=== PATIENT | female | born 1940 | race African-American/Black ===

== ENCOUNTER 2017-01-25 17:14 | Emergency (ER) | payer MEDICARE, OTHER ==
[2017-01-25] MEDS ORDERED: MECLIZINE 25 MG TABLET PO ONE (17:42)
--- NOTE | 2017-01-25 17:46 | Emergency Department Record ---
History of Present Illness - General Chief Complaint: Hypertension Stated Complaint: DIZZY Time Seen by Provider: 01/25/17 17:24 Source: Patient, Old records reviewed Mode of Arrival: Ambulatory Limitations: No limitations - History of Present Illness Initial Comments: The patient is here due to feeling dizzy earlier with mild nausea. She describes the dizziness as feeling like the room was spinning mildly. The onset seemed to be with moving her head. She has had similar problems in the past also. The symptoms occurred earlier in the day so the patient did take her blood pressure and it was elevated so she decided to go to the . At the they found her BP elevated at 150/90 so they sent the patient to the ER. Presently the patient denies any pain, DINH, nausea, dizziness, blurred vision, or weakness. She basically feels back to normal. The patient has a long hx of HTN and did take all of her medicine today. MD Complaint: Dizziness Onset/Timin -: Days(s) Timing: Unsure History of Same: No History of Trauma: No Improves With: Nothing Worsens With: Nothing Associated Symptoms: Denies other symptoms - Related Data Home Medications Medication Instructions Recorded Confirmed Last Taken Amlodipine Besylate/Benazepril 1 each PO DAILY 01/25/17 01/25/17 Unknown [Amlodipine-Benazepril 10-20 mg] Previous Rx's Medication Instructions Recorded Meclizine HCl [Antivert] 25 mg PO BID #15 tab 01/25/17 Allergies Allergy/AdvReac Type Severity Reaction Status Date / Time Penicillins Allergy PT UNSURE Unverified 12/17/15 11:29 OF REACTION Travel Screening - Travel/Exposure Within Last 30 Days Have you traveled within the last 30 days?: No Review of Systems Constitutional: Denies: Chills, Fever Eyes: Denies: Eye discharge ENT: Denies: Congestion Respiratory: Denies: Cough, Dyspnea Past Medical History - SOCIAL HISTORY Smoking Status: Never smoker Alcohol Use: None Drug Use: None - RESPIRATORY Hx Respiratory Disorders: Yes Hx Asthma: Yes - CARDIOVASCULAR Hx Cardio Disorders: Yes Hx Hypertension: Yes - NEURO Hx Neuro Disorders: No - GI Hx GI Disorders: Yes Hx Diverticulitis: Yes - Hx Genitourinary Disorders: No - ENDOCRINE Hx Endocrine Disorders: No - MUSCULOSKELETAL Hx Musculoskeletal Disorders: No - PSYCH Hx Psych Problems: Yes Hx Anxiety: Yes Hx Depression: Yes - HEMATOLOGY/ONCOLOGY Hx Hematology/Oncology Disorders: No Family Medical History Any Significant Family History?: Yes Hx Cancer: Father, Mother, Brother/Sister Hx Dementia: Father Hx HTN: Father, Mother Hx Stroke: Father Physical Exam - General General Appearance: Alert, Oriented x3, Cooperative, No acute distress - Head Head exam: Atraumatic, Normocephalic, Normal inspection - Eye Eye exam: Normal appearance, PERRL - ENT ENT exam: Normal exam, Mucous membranes moist, Normal external ear exam, Normal orophraynx, TM's normal bilaterally Throat exam: Normal inspection. negative: Tonsillar erythema, Tonsillar exudate - Neck Neck exam: Normal inspection, Full ROM, Other (Neg bruits.). negative: Tenderness - Respiratory Respiratory exam: Normal lung sounds bilaterally. negative: Respiratory distress - Cardiovascular Cardiovascular Exam: Regular rate, Normal rhythm, Normal heart sounds - GI/Abdominal GI/Abdominal exam: Soft, Normal bowel sounds. negative: Tenderness - Extremities Extremities exam: Normal inspection, Full ROM, Normal capillary refill. negative: Tenderness - Neurological Neurological exam: Alert, Normal gait, Oriented X3, Other (Neg Drift or Rhomberg exams.). negative: Abnormal gait, Altered, Motor sensory deficit Course Vital Signs 01/25/17 17:16 Temperature 98.7 F Pulse Rate 112 H Respiratory 16 Rate Blood Pressure 155/103 Pulse Ox 99 - Reevaluation(s) Reevaluation #1: The patient is doing very well at this time. Her repeat BP is 137/93. 01/25/17 17:48 Reevaluation #2: The patient is doing very well. She reports no return of the dizziness, or any DINH, CP, SOB, arm or leg numbness, or weakness. She is up walking with no problems or issues. I explained to her that her BP has been very controlled and not elevated here in the ER. We will place the patient on Antivert and have her F/U with her PCP next week for recheck. On recheck here her last BP was 130/100 and HR 100. 01/25/17 18:39 01/25/17 18:41 Medical Decision Making - Data Complexity MDM Data: EKG Ordered and/or Reviewed - Lab Data Result diagrams: 01/25/17 18:10 01/25/17 18:10 - EKG Data -: EKG Interpreted by Me EKG: No Acute Changes, Unchanged From Previous Disposition Disposition: Discharge Clinical Impression: Dizziness Hypertension Qualifiers: Hypertension type: unspecified Qualified Code(s): I10 - Essential (primary) hypertension Disposition: Home, Self-Care Condition: (2) Stable Instructions: Hypertension (ED) Additional Instructions: Please continue your regular medicines and monitor your BP daily. Please use the Antivert for dizziness and please see your PCP for recheck early next week. Return to the ER for any worsening symptoms or elevated BP. Prescriptions: Meclizine HCl [Antivert] 25 mg PO BID #15 tab Forms: Patient Portal Access Time of Disposition: 18:42 Quality - Quality Measures Quality Measures: N/A - Blood Pressure Screening View Details: Yes Does Patient Have Any of the Following: Active Dx of HTN Blood Pressure Classification: Hypertensive Reading Systolic Measurement: 155 Diastolic Measurement: 103 Screening for High Blood Pressure: Patient Exclusion, Hx of HTN [G9744]
[2017-01-25 18:15] LABS: BASO % 0.1 % (0-6); EOS % 0.9 % (0-6); HEMATOCRIT 42.2 % (35.0-47.0); HEMOGLOBIN 13.6 gm/dl (11.6-16.0); LYMPH % 24.7 % (16-45); MEAN CELL VOLUME 66.2 fl (81-97); MEAN CORPUSCULAR HGB CONC 32.2 g/dl (32-36); MEAN PLATELET VOLUME 10.8 fl (7.4-10.4); MONO % 7.3 % (0-9); PLATELET COUNT 320 K/uL (130-400); RED BLOOD COUNT 6.37 M/uL (3.80-5.40); RED CELL DISTRIBUTION WIDTH 18.2 % (11.5-14.5); WHITE BLOOD COUNT W/O DIFF 6.9 K/uL (4.2-12.2)
[2017-01-25 18:16] LABS: MEAN CORPUSCULAR HEMOGLOBIN 21.3 pg (27-33)
[2017-01-25 18:35] LABS: ALB/GLOB RATIO 1.3 (1.1-1.8); ALBUMIN 4.5 g/dL (4.0-5.0); ALKALINE PHOSPHATASE 50 U/L (35-104); ALT/SGPT 18 U/L (<33); AST/SGOT 16 U/L (10.0-35.0); BLOOD UREA NITROGEN 14 mg/dL (8-23); CREATININE 0.8 mg/dL (0.5-0.9); EST GLOMERULAR FILTRATION RATE > 60 mL/min; GLUCOSE,RANDOM 95 mg/dL (74-109); TOTAL PROTEIN 8.1 g/dL (6.6-8.7)
== END 2017-01-25 18:45 | disposition home or self-care (01) ==
LOC: ER 17:14
DX: R42 Dizziness and giddiness (principal); R11.0 Nausea; I10 Essential (primary) hypertension
CPT/HCPCS: 80053; 85025; 93005; 93010; 99284

== ENCOUNTER 2018-01-18 16:12 | Emergency (ER) | payer MEDICARE, OTHER ==
[2018-01-18] MEDS ORDERED: ASPIRIN 325 MG TABLET PO ONE (16:43)
[2018-01-18] MEDS ORDERED: ONDANSETRON HCL IV 4 MG/2 ML VIAL IVP ONE (16:44)
--- NOTE | 2018-01-18 16:45 | Emergency Department Record ---
History of Present Illness - General Chief Complaint: Hypertension Stated Complaint: HIGH BP,NAUSEA,ABD PAIN Time Seen by Provider: 01/18/18 16:32 Source: Patient Mode of Arrival: Ambulatory Limitations: No limitations - History of Present Illness Initial Comments: The patient is here due to not feeling well today. She has had some sharp back pain around her L shoulder blade that radiates around to the L anterior chest. She also has had TARIK with it mildly and ROWE. The patient also complaints of worsening of her mild L anterior chest pain recently. She states due to not feeling well her BP has been going up today. MD Complaint: Other Onset/Timin -: Hour(s) Associated Symptoms: Chest pain, Shortness of breath, Weakness - Clau Coma Scale Eye Response: (4) Open spontaneously Motor Response: (6) Obeys commands Verbal Response: (5) Oriented [place] Total: 15 - Related Data Home Medications Medication Instructions Recorded Confirmed Last Taken Benazepril/Hydrochlorothiazide 2 tab PO DAILY 01/18/18 01/18/18 01/18/18 [Benazepril-Hctz 20-25 mg Tab] Allergies Allergy/AdvReac Type Severity Reaction Status Date / Time Penicillins Allergy PT UNSURE Verified 01/18/18 16:32 OF REACTION Travel Screening - Travel/Exposure Within Last 30 Days Have you traveled within the last 30 days?: No - Travel/Exposure Within Last Year Have you traveled outside the [place] in the last year?: No - Additonal Travel Details Have you been exposed to anyone with a communicable illness?: No Review of Systems Constitutional: Denies: Chills, Fever Eyes: Denies: Eye discharge ENT: Denies: Congestion Respiratory: Denies: Cough, Dyspnea Cardiovascular: Reports: Chest pain, Dyspnea on exertion. Denies: Arrhythmia Endocrine: Reports: Fatigue Gastrointestinal: Reports: Nausea. Denies: Diarrhea, Vomiting Genitourinary: Denies: Dysuria Musculoskeletal: Denies: Arthralgia Skin: Denies: Bruising Past Medical History - SOCIAL HISTORY Smoking Status: Never smoker Alcohol Use: Occasional Drug Use: None - RESPIRATORY Hx Respiratory Disorders: Yes Hx Asthma: Yes Hx Sleep Apnea: Yes Hx of CPAP: Yes - CARDIOVASCULAR Hx Cardio Disorders: Yes Hx Hypertension: Yes - NEURO Hx Neuro Disorders: No - GI Hx GI Disorders: Yes Hx Diverticulitis: Yes Hx GI Bleed: Yes - Hx Genitourinary Disorders: No - ENDOCRINE Hx Endocrine Disorders: No - MUSCULOSKELETAL Hx Musculoskeletal Disorders: Yes - PSYCH Hx Psych Problems: Yes Hx Anxiety: Yes Hx Depression: Yes - HEMATOLOGY/ONCOLOGY Hx Hematology/Oncology Disorders: No Family Medical History Any Significant Family History?: No Hx Cancer: Father, Mother, Brother/Sister Hx Dementia: Father Hx HTN: Father, Mother Hx Stroke: Father Physical Exam - General General Appearance: Alert, Oriented x3, Cooperative, No acute distress - Head Head exam: Atraumatic, Normocephalic, Normal inspection - Eye Eye exam: Normal appearance, PERRL - ENT Throat exam: Normal inspection. negative: Tonsillar erythema, Tonsillar exudate - Neck Neck exam: Normal inspection, Full ROM. negative: Tenderness - Respiratory Respiratory exam: Normal lung sounds bilaterally. negative: Respiratory distress - Cardiovascular Cardiovascular Exam: Regular rate, Normal rhythm, Normal heart sounds - GI/Abdominal GI/Abdominal exam: Soft, Normal bowel sounds. negative: Tenderness - Extremities Extremities exam: Normal inspection, Full ROM, Normal capillary refill. negative: Tenderness - Back Back exam: Reports: Normal inspection. Denies: Paraspinal tenderness - Neurological Neurological exam: Alert, Normal gait, Oriented X3. negative: Abnormal gait, Altered, Motor sensory deficit - Skin Skin exam: negative: Rash Course Vital Signs 01/18/18 16:20 Pulse Rate 103 H Respiratory 18 Rate Blood Pressure 147/113 Pulse Ox 99 - Reevaluation(s) Reevaluation #1: The patient is doing a lot better at this time. She is resting comfortably with no pain or discomfort. Her BP also is improved. I did discuss the issues with the patient and did recommend hospital admission. Due to her Painting Technician being at [facility] I did recommend transfer there and she is thinking about it. 01/18/18 17:54 Reevaluation #2: I did again discuss the need for admission with the patient. She now does not want to be admitted and would like to leave [facility]. I explained to her that the risks of leaving are that she could go home and have an IL, stroke, become disabled and . The patient does have proper decision making capacity and accepts the risks. She was instructed to see her Painting Technician DEEJAY and to return to the ER for any worsening symptoms. 01/18/18 18:02 Medical Decision Making - Data Complexity MDM Data: Labs Ordered and/or Reviewed, X-Ray Ordered and/or Reviewed, EKG Ordered and/or Reviewed - Lab Data Result diagrams: 01/18/18 16:33 01/18/18 16:33 - EKG Data -: EKG Interpreted by Me EKG: No Acute Changes, Unchanged From Previous - Radiology Data Radiology results: Report reviewed (CXR: Stable CMG, Neg for acute lung findings.) Disposition Disposition: Discharge Clinical Impression: Atypical chest pain Disposition: Against Medical Advice Condition: (2) Stable Instructions: Hypertension (ED) Additional Instructions: Please continue your regular medicines and please see your Painting Technician next week. Return to the ER for any worsening symptoms or for any illnesses. Forms: Patient Portal Access Time of Disposition: 18:06 Quality - Quality Measures Quality Measures: N/A - Blood Pressure Screening View Details: Yes Does Patient Have Any of the Following: Active Dx of HTN Blood Pressure Classification: Hypertensive Reading Systolic Measurement: 137 Diastolic Measurement: 101 Screening for High Blood Pressure: Patient Exclusion, Hx of HTN [G9744]
[2018-01-18] MEDS ORDERED: LORAZEPAM 2 MG/ML VIAL IV ONE (16:47)
[2018-01-18 16:56] LABS: BASO % 0.4 % (0-6); EOS % 1.3 % (0-6); GRAN % 63.7 % (47-80); HEMATOCRIT 40.9 % (35.0-47.0); HEMOGLOBIN 12.8 gm/dl (11.6-16.0); LYMPH % 28.3 % (16-45); MEAN CELL VOLUME 67.3 fl (81-97); MEAN CORPUSCULAR HGB CONC 31.3 g/dl (32-36); MEAN PLATELET VOLUME 10.9 fl (7.4-10.4); MONO % 6.3 % (0-9); PLATELET COUNT 336 K/uL (130-400); RED BLOOD COUNT 6.08 M/uL (3.80-5.40); RED CELL DISTRIBUTION WIDTH 17.8 % (11.5-14.5); WHITE BLOOD COUNT W/O DIFF 6.7 K/uL (4.2-12.2)
[2018-01-18 17:07] LABS: BLOOD UREA NITROGEN 17 mg/dL (8-23); EST GLOMERULAR FILTRATION RATE 57 mL/min
[2018-01-18 17:09] LABS: PARTIAL THROMBOPLASTIN TIME 24.7 SECONDS (24.5-39.1); PROTHROMBIN TIME (PATIENT) 10.3 SECONDS (9.5-12.1)
[2018-01-18 17:10] LABS: GLUCOSE,RANDOM 83 mg/dL (74-109)
[2018-01-18 17:13] LABS: CREATINE PHOSPHOKINASE 188 U/L (26-192)
[2018-01-18 17:15] LABS: CKMB 2.7 ng/mL (<3.77)
--- NOTE | 2018-01-20 20:47 | RADIOLOGY REPORT ---
EXAM: CHEST 1 VIEW HISTORY: SHORTNESS OF BREATH AND CHEST PAIN. TECHNIQUE: Single portable frontal view of the chest. COMPARISON: Chest radiograph 08/14/2016. FINDINGS: Cardiac silhouette is enlarged and similar from comparison. Pulmonary vasculature appears nondilated. No focal pulmonary consolidation. No definable pleural fluid collection or visible pneumothorax. IMPRESSION: 1. CARDIAC SILHOUETTE ENLARGEMENT, WHICH APPEARS SIMILAR FROM COMPARISON. 2. NO DEFINITE ACUTE LUNG FINDINGS. JOB NUMBER: [id number] MTDD
== END 2018-01-18 18:20 | disposition left against medical advice (07) ==
LOC: ER 16:12
DX: R07.89 Other chest pain (principal); R06.02 Shortness of breath; R53.1 Weakness; I10 Essential (primary) hypertension
CPT/HCPCS: 99284 ×2; 96374; 96375; 82550; 85025; 85730; 85610; 82553; 80048; 84484; 71045; 93005; 93010; J2405; J2060

== ENCOUNTER 2019-01-04 11:17 | Emergency (ER) | payer MEDICARE, OTHER ==
--- NOTE | 2019-01-04 11:50 | Emergency Department Record ---
History of Present Illness - General Chief complaint: Fatigue and Weakness Stated complaint: DIZZINESS,HEADACHE,NUMBNESS IN EXTREMITIES Time Seen by Provider: 01/04/19 11:49 Source: Patient Mode of Arrival: Ambulatory - History of Present Illness Initial comments: The patient states "I'm dehydrated." She states she has always had trouble hydrating and drinking enough, but this time she is lightheaded, generally weak, with chills and shaking on and off. She denies chest pain, TARIK, abdominal pain, or stroke symptoms. Onset/Timin -: Month(s) Location: Generalized Severity: Mild Associated Symptoms: Confusion, Headaches, Myalgias - Clau Coma Scale Eye Response: (4) Open spontaneously Motor Response: (6) Obeys commands Verbal Response: (5) Oriented Clau Total: 15 - Symptoms of Stroke Onset of Symptoms Date: 11/18/18 Symptom Onset Unknown: Yes Symptoms of stroke: Dizziness - Related Data Allergies Allergy/AdvReac Type Severity Reaction Status Date / Time Penicillins Allergy PT UNSURE Verified 01/18/18 16:32 OF REACTION Travel Screening - Travel/Exposure Within Last 30 Days Have you traveled within the last 30 days?: No - Travel/Exposure Within Last Year Have you traveled outside the [place] in the last year?: No - Additonal Travel Details Have you been exposed to anyone with a communicable illness?: No - Travel Symptoms Symptom Screening: None Review of Systems Reviewed: No additional complaints except as noted below Constitutional: Reports: As per HPI. Denies: Chills, Fever, Malaise, Night sweats, Weakness, Weight change Eyes: Reports: As per HPI. Denies: Eye discharge, Eye pain, Photophobia, Vision change ENT: Reports: As per HPI. Denies: Congestion, Dental pain, Ear pain, Epistaxis, Hearing loss, Throat pain Respiratory: Reports: As per HPI. Denies: Cough, Dyspnea, Hemoptysis, Stridor, Wheezes Cardiovascular: Reports: As per HPI. Denies: Arrhythmia, Chest pain, Dyspnea on exertion, Edema, Murmurs, Orthopnea, Palpitations, Paroxysmal nocturnal dyspnea, Rheumatic Fever, Syncope Endocrine: Reports: As per HPI. Denies: Fatigue, Heat or cold intolerance, Polydipsia, Polyuria Gastrointestinal: Reports: As per HPI. Denies: Abdominal pain, Constipation, Di arrhea, Hematemesis, Hematochezia, Melena, Nausea, Vomiting Genitourinary: Reports: As per HPI. Denies: Abnormal menses, Discharge, Dyspareunia, Dysuria, Frequency, Hematuria, Incontinence, Retention, Urgency Musculoskeletal: Reports: As per HPI. Denies: Arthralgia, Back pain, Gout, Joint swelling, Myalgia, Neck pain Skin: Reports: As per HPI. Denies: Bruising, Change in color, Change in hair/nails, Lesions, Pruritus, Rash Neurological: Reports: As per HPI. Denies: Abnormal gait, Confusion, Headache, Numbness, Paresthesias, Seizure, Tingling, Tremors, Vertigo, Weakness Psychiatric: Reports: As per HPI. Denies: Anxiety, Auditory hallucinations, Depression, Homicidal thoughts, Suicidal thoughts, Visual hallucinations Hematological/Lymphatic: Reports: As per HPI. Denies: Anemia, Blood Clots, Easy bleeding, Easy bruising, Swollen glands Past Medical History - SOCIAL HISTORY Smoking Status: Never smoker Alcohol Use: Occasional Drug Use: None - RESPIRATORY Hx Respiratory Disorders: Yes Hx Asthma: Yes Hx Sleep Apnea: Yes Hx of CPAP: Yes - CARDIOVASCULAR Hx Cardio Disorders: Yes Hx Hypertension: Yes - NEURO Hx Neuro Disorders: No - GI Hx GI Disorders: Yes Hx Diverticulitis: Yes Hx GI Bleed: Yes - Hx Genitourinary Disorders: No - ENDOCRINE Hx Endocrine Disorders: No Hx Diabetes: No Hx Thyroid Disease: No - MUSCULOSKELETAL Hx Musculoskeletal Disorders: Yes - PSYCH Hx Psych Problems: Yes Hx Anxiety: Yes Hx Depression: Yes - HEMATOLOGY/ONCOLOGY Hx Hematology/Oncology Disorders: No Family Medical History Any Significant Family History?: Yes Hx Cancer: Father, Mother, Brother/Sister Hx Dementia: Father Hx HTN: Father, Mother Hx Stroke: Father Physical Exam - General General Appearance: Alert, Oriented x3, Cooperative, No acute distress - Head Head exam: Normal inspection - Eye Eye exam: Normal appearance, PERRL, EOMI. negative: Conjunctival injection, Nystagmus Pupils: Normal accommodation - ENT ENT exam: Normal exam, Mucous membranes moist, Normal external ear exam, Normal orophraynx, TM's normal bilaterally Ear exam: Normal external inspection. negative: External canal tenderness Nasal Exam: Normal inspection. negative: Discharge, Sinus tenderness Mouth exam: Normal external inspection, Tongue normal Teeth exam: Normal inspection. negative: Dental caries Throat exam: Normal inspection. negative: Tonsillar erythema, Tonsillar exudate - Neck Neck exam: Normal inspection, Full ROM. negative: Lymphadenopathy, Meningismus, Tenderness - Respiratory Respiratory exam: Normal lung sounds bilaterally. negative: Respiratory distress - Cardiovascular Cardiovascular Exam: Regular rate, Normal rhythm, Normal heart sounds - GI/Abdominal GI/Abdominal exam: Soft, Normal bowel sounds. negative: Tenderness - Rectal Rectal exam: Deferred - exam: Deferred - Extremities Extremities exam: Normal inspection, Full ROM, Normal capillary refill. nega tive: Calf tenderness, Pedal edema, Tenderness - Back Back exam: Reports: Normal inspection, Full ROM. Denies: Muscle spasm, Rash noted, Tenderness - Neurological Neurological exam: Alert, CN II-XII intact, Normal gait, Oriented X3, Reflexes normal. negative: Altered, Motor sensory deficit - Psychiatric Psychiatric exam: Normal affect, Normal mood - Skin Skin exam: Dry, Intact, Normal color, Warm Course Vital Signs 01/04/19 11:36 Temperature 98.0 F Pulse Rate 95 H Respiratory 18 Rate Blood Pressure 139/96 Pulse Ox 97 - Reevaluation(s) Reevaluation #1: Patient was wiggling after two attempts to establish an IV. Patient insists on leaving AMA and going home to hydrate herself. She was informed she is welcome to return if she changes her mind. She agrees to AMA disposition. 01/04/19 12:25 Medical Decision Making - Management Options MDM Management: No Additional Work-up Planned (Leaving AMA) - Lab Data Result diagrams: 01/04/19 12:10 01/04/19 12:10 Disposition Disposition: Other (AMA) Disposition: Against Medical Advice Additional Instructions: Return if you change your mind. Quality - Quality Measures Quality Measures: N/A - Blood Pressure Screening Does Patient Have Any of the Following: No Blood Pressure Classification: Hypertensive Reading Systolic Measurement: 139 Diastolic Measurement: 96 Screening for High Blood Pressure: Patient Exclusion, Hx of HTN [G9744]
[2019-01-04] MEDS ORDERED: 0.9 % SODIUM CHLORIDE 1,000 ML BAG IV ONE (12:10)
== END 2019-01-04 12:34 | disposition left against medical advice (07) ==
LOC: ER 11:17
DX: R42 Dizziness and giddiness (principal); R51 Headache; I10 Essential (primary) hypertension; R20.0 Anesthesia of skin; R53.1 Weakness; Z53.29 Procedure and treatment not carried out because of patient's decision for other reasons
CPT/HCPCS: 99281